=== PATIENT | female | born 1965 | race African-American/Black ===

== ENCOUNTER → 2018-03-24 07:02 | Outpatient (CLI) | payer MEDICARE, MEDICAID, SELFPAY ==
[2018-03-24 09:03] LABS: Alanine Aminotransferase 28 IU/L (9-52); Albumin 4.1 g/dL (3.5-5.0); Albumin Globulin Ratio 1.1 (1.0-2.8); Alkaline Phosphatase 100 U/L (38-126); Aspartate Aminotransferase 27 IU/L (14-36); BUN Creatinine Ratio 13.3 (6-22); Bilirubin Total 0.4 mg/dL (0.2-1.3); Calcium 9.6 mg/dL (8.4-10.2); Cholesterol 184 mg/dL (140-199); Estimated Glomerular Filt Rate > 60.0 mL/min (>60); Globulin 3.7 g/dL (1.7-4.1); Glucose 105 mg/dL (70-100); HDL Cholesterol 41 mg/dL (40-60); HEMOLYSIS < 15 (0-50); LDL Cholesterol Calculated 115 mg/dL (<100); Potassium 4.1 mmol/L (3.4-5.1); Sodium 141 mmol/L (137-145); Total Protein 7.8 g/dL (6.3-8.2); Triglycerides 139 mg/dL (35-150)
== END ==
PROVIDERS: PCP Family Medicine; Visit Provider Family Medicine
DX: E78.5 Hyperlipidemia, unspecified (principal)
CPT/HCPCS: 36415; 80053; 80061

== ENCOUNTER → 2018-11-09 07:01 | Outpatient (CLI) | payer MEDICARE, MEDICAID, SELFPAY ==
[2018-11-09 07:33] LABS: Appearance Urine UA CLEAR; Bilirubin Urine UA NEGATIVE (NEGATIVE); Color Urine UA YELLOW; Glucose Urine UA NEGATIVE (Negative); Ketones Urine UA NEGATIVE (NEGATIVE); Leukocyte Esterase Urine UA NEGATIVE (NEGATIVE); Nitrite Urine UA NEGATIVE (Negative); Occult Blood Urine UA NEGATIVE (Negative); Protein Urine UA NEGATIVE (Negative); Specific Gravity Urine UA 1.015 (1.000-1.035); Urobilinogen Urine UA 0.2 E.U./dL (0.2)
[2018-11-09 07:55] LABS: Alanine Aminotransferase 19 IU/L (9-52); Albumin 4.3 g/dL (3.5-5.0); Albumin Globulin Ratio 1.2 (1.0-2.8); Alkaline Phosphatase 121 U/L (38-126); Aspartate Aminotransferase 20 IU/L (14-36); Bilirubin Total 0.4 mg/dL (0.2-1.3); Blood Urea Nitrogen 13 mg/dL (7-17); Calcium 9.7 mg/dL (8.4-10.2); Carbon Dioxide 28 mmol/L (22-32); Chloride 105 mmol/L (98-107); Cholesterol 168 mg/dL (140-199); Estimated Glomerular Filt Rate 58.5 mL/min (>60); Globulin 3.6 g/dL (1.7-4.1); Glucose 103 mg/dL (70-100); HDL Cholesterol 38 mg/dL (40-60); HEMOLYSIS < 15 (0-50); LDL Cholesterol Calculated 108 mg/dL (<100); Potassium 4.3 mmol/L (3.4-5.1); Sodium 143 mmol/L (137-145); Total Protein 7.9 g/dL (6.3-8.2); Triglycerides 112 mg/dL (35-150)
[2018-11-09 08:46] LABS: Thyroid Stimulating Hormone 1.45 uIU/mL (0.47-4.68)
== END ==
PROVIDERS: PCP Family Medicine; Visit Provider Family Medicine
DX: E78.5 Hyperlipidemia, unspecified (principal); Z51.81 Encounter for therapeutic drug level monitoring; R76.8 Other specified abnormal immunological findings in serum
CPT/HCPCS: 36415; 80053; 80061; 81003; 84443; 86704

== ENCOUNTER 2019-02-22 08:29 | Day surgery (SDC) | payer MEDICARE, MEDICAID, SELFPAY ==
--- NOTE | 2019-02-22 | PATH_ITS ---
[facility] Accession Number: [id number] . 01 Material submitted: . colon - LEFT COLON POLYP . 02 Diagnosis: Left Colon, Polyp, Biopsy: Tubular adenoma. MRV/02/23/2019 . 02 Electronically signed: . Flor Stoner MD, Pathologist NPI- [id number] . 01 Gross description: . LEFT COLON POLYP: Received in formalin is 1 fragment(s) of franz, soft tissue measuring 0.3 x 0.2 x 0.2 cm which is entirely submitted and submitted entirely in 1 cassette(s) /DMC /DMC . 02 Pathologist provided ICD-10: D12.6 . 02 CPT . 027787 Performed at: 01 [facility] [address] [id number] MD All Rodarte MD Phone: [phone] Performed at: 02 [facility] [address] [place], [place] [id number] MD Flor Stoner MD Phone: [phone]
[2019-02-22 08:41] VITALS: BP 125/76; PULSE 73; RESP 15; TEMP 36; O2SAT 94; BMI 37.3
[2019-02-22] MEDS: SODIUM CHLORIDE 0.9% 1,000 ML 200 ML IV (09:17)
--- NOTE | 2019-02-22 09:22 | PM.HP.1 ---
History of Present Illness Date Patient Seen: 02/22/19 Time Patient Seen: 09:22 Chief complaint: [id number] Colonoscopy Narrative: 54yo F for low risk screening colonoscopy. Does have family history of CRC in a grandfather who was age 71 but no first degree relatives. No symptoms in patient. Patient History Family History Father Cancer Hypertension Grandfather Colon cancer Grandmother Heart disease High cholesterol Mother Age: 71 Mental health problem Social History household members: family Smoking Status: Former smoker Family & Social History Family History Father Cancer Hypertension Grandfather Colon cancer Grandmother Heart disease High cholesterol Mother Age: 71 Mental health problem Social History: household members family Tobacco & Substance use: Smoking Status Former smoker Meds Home Medications Medication Instructions Recorded Confirmed Type hydroquinone microspheres 1 kira TOPICAL QDAY #30 gm 06/11/16 02/22/19 Rx latanoprost 0.005 % eye drops 1 drp EYE-BOTH DAILY ml 03/20/18 02/22/19 History timolol 0.5 % eye drops 1 drp EYE-BOTH DAILY ml 03/20/18 02/22/19 History gabapentin 300 mg capsule 300 mg PO BEDTIME #90 cap 11/25/18 02/22/19 Rx spironolactone 50 mg tablet 50 mg PO BID 11/25/18 02/22/19 History risperidone 2 mg tablet 2 mg PO QDAY #90 tab 01/12/19 02/22/19 Rx clonidine HCl 0.1 mg tablet 0.1 mg PO BIDP PRN #180 tab 01/14/19 02/22/19 Rx pantoprazole 20 mg tablet,delayed 20 mg PO QDAY #90 tab 02/11/19 02/22/19 Rx release lithium carbonate 300 mg capsule 300 mg PO TID #90 cap 02/19/19 02/22/19 Rx atorvastatin [Lipitor] 20 mg PO HS 02/22/19 02/22/19 History gabapentin 100 mg PO BID 02/22/19 02/22/19 History hydroxyzine HCl 20 mg PO TIDP PRN 02/22/19 02/22/19 History lamotrigine [Lamictal] 100 mg PO QDAY 04/22/19 04/22/19 History Allergies Allergy/AdvReac Type Severity Reaction Status Date / Time No Known Drug Allergies Allergy Verified 02/22/19 09:00 Review of Systems Constitutional Constitutional: Reports as per HPI Exam Vital Signs (past 8 hours): - 02/22/19 08:41 Temperature 96.8 F L Pulse Rate 73 Respiratory Rate 15 Blood Pressure 125/76 Pulse Oximetry 94 Oxygen Delivery Method Room Air Narrative Exam Narrative: AAO, NAD, obese female EOMI, MMM, no scleral icterus unlabored RA soft, nt/nd MAEW visible skin dry and intact Assessment & Plan (1) Screening for colorectal cancer: Current visit: Yes Status: Acute Assessment & Plan narrative: - plan for screening colonoscopy --> all R/B/A discussed and pt wishes to proceed
[2019-02-22] MEDS: fentaNYL 250 MCG/5 ML INJ IV (09:58)
[2019-02-22] MEDS: MIDAZOLAM 5 MG/5 ML VIAL IV (09:58)
[2019-02-22 10:01] VITALS: BP 117/72; PULSE 80; RESP 16; TEMP 36.1; O2SAT 97
[2019-02-22 10:06] VITALS: BP 127/74; PULSE 85; RESP 17; O2SAT 99
[2019-02-22 10:11] VITALS: BP 136/73; PULSE 84; RESP 17; O2SAT 99
--- NOTE | 2019-02-22 10:14 | SUR.PHASEI ---
Tolerating Po well, denies nausea/discomfort, oriented
[2019-02-22 10:16] VITALS: BP 118/54; PULSE 84; RESP 18; TEMP 36.7; O2SAT 99
--- NOTE | 2019-02-22 10:30 | SUR.PHASEII ---
1028 Oriented, comfortable, no questions/concerns, stable on feet. Resp unlabored, states that she feels wide awake.
--- NOTE | 2019-02-22 11:33 | PM.OP.ENDO ---
Operative Date/Time/Diagnoses Date of procedure: 02/22/19 Time of procedure: 09:56 Pre-op diagnosis: need for low risk screening colonoscopy Post-op diagnosis: same Procedure & Clinicians Study performed: low risk screening colonoscopy Same procedure as scheduled: Yes Indications: 54yo F with need for screening colonoscopy. Surgeon: Latricia Zimmerman Procedure Notes SCOAP/Timeout: 927 Procedure in detail: After obtaining informed consent, the patient was brought to the GI suite and placed in the left lateral decubitus position on the examination table. After placement of appropriate monitors, the patient was given incremental doses of Versed and Fentanyl until an appropriate level of sedation was achieved. A time out was held per SCOAP protocol. A digital rectal examination was performed and did not reveal any masses or obstructing lesions. The colonoscope was gently passed into the patient's anus and the entire colon navigated to the level of the cecum with minimal difficulty. Prep was adequate. Once in the cecum, the scope was slowly withdrawn being sure to go before and beyond all mucosal folds and prominences as able to get a thorough examination. A tiny 1-2mm hyperplastic-appearing polyp was noted in the proximal left colon. Other findings include scattered diverticula. At the level of the rectal vault, the scope was retroflexed and the internal anal canal was examined. The scope was straightened and air aspirated from the colon. The instrument was removed from the patient's body and the procedure was concluded. The patient was allowed to awaken from sedation without difficulty and taken to the post-anesthesia care unit in good condition. Scope withdrawal time: 12 min Sedation minutes: 27 Findings: diverticulosis and polyp (1-2 mm, hyperplastic appearing, in proximal left colon ) Specimen(s): other (L colon polyp) Complications: none Impression: 1. scattered diverticulosis 2. tiny L colon polyp, appears hyperplastic Recommendations: Colonscopy in 10 years (pending path results) and High fiber diet Follow up: as needed Disposition: PACU
== END 2019-02-22 10:28 | disposition home or self-care (01) ==
PROVIDERS: PCP Family Medicine; Visit Provider Surgery
PROC: 0DJD8ZZ Inspection of Lower Intestinal Tract, Via Natural or Artificial Opening Endoscopic (ICD-10-PCS; CPT 45378; principal; 2019-02-22 09:45)
DX: Z12.11 Encounter for screening for malignant neoplasm of colon (principal); K57.30 Diverticulosis of large intestine without perforation or abscess without bleeding; Z87.891 Personal history of nicotine dependence; D12.6 Benign neoplasm of colon, unspecified
CPT/HCPCS: 45380; 88305; 99152; 99153; J2250; J3010

== ENCOUNTER → 2019-02-25 10:16 | Outpatient (CLI) | payer MEDICARE, MEDICAID, SELFPAY ==
[2019-02-25 12:09] LABS: Alanine Aminotransferase 15 IU/L (9-52); Albumin 4.5 g/dL (3.5-5.0); Albumin Globulin Ratio 1.3 (1.0-2.8); Alkaline Phosphatase 132 U/L (38-126); Aspartate Aminotransferase 19 IU/L (14-36); Bilirubin Total 0.3 mg/dL (0.2-1.3); Blood Urea Nitrogen 12 mg/dL (7-17); Calcium 9.6 mg/dL (8.4-10.2); Carbon Dioxide 24 mmol/L (22-32); Chloride 103 mmol/L (98-107); Estimated Glomerular Filt Rate > 60.0 mL/min (>60); Globulin 3.6 g/dL (1.7-4.1); Glucose 85 mg/dL (70-100); HEMOLYSIS < 15 (0-50); Potassium 4.3 mmol/L (3.4-5.1); Sodium 139 mmol/L (137-145); Total Protein 8.1 g/dL (6.3-8.2)
== END ==
PROVIDERS: PCP Family Medicine; Visit Provider Physician Assistant
DX: L70.8 Other acne (principal)
CPT/HCPCS: 36415; 80053

== ENCOUNTER → 2019-03-09 09:06 | Outpatient (CLI) | payer MEDICARE, MEDICAID, SELFPAY ==
--- NOTE | 2019-03-09 09:08 | DI.MG.S_ITS ---
BILATERAL DIGITAL SCREENING MAMMOGRAM 3D/2D WITH CAD: 03/09/2019 CLINICAL: Baseline exam. Routine screening. Family history of breast cancer. No prior exams were available for comparison. There are scattered fibroglandular elements in both breasts. Current study was also evaluated with a Computer Aided Detection (CAD) system. No significant masses, calcifications, or other findings are seen in either breast. IMPRESSION: NEGATIVE There is no mammographic evidence of malignancy. A 1 year screening mammogram is recommended. This exam was interpreted at Station ID: [id number]. NOTE: For mammograms, a report in lay terms will be sent to the patient. Approximately 15% of breast malignancies will not be visualized mammographically. In the management of a palpable breast mass, a negative mammogram must not discourage biopsy of a clinically suspicious lesion. Electronically Signed By: Chris guzman/gabby:03/09/2019 12:50:33 letter sent: Normal Exam ACR BI-RADS Category 1: Negative [id number]
== END ==
PROVIDERS: PCP Family Medicine; Visit Provider Family Medicine
DX: Z12.31 Encounter for screening mammogram for malignant neoplasm of breast (principal); Z80.3 Family history of malignant neoplasm of breast
CPT/HCPCS: 77063; 77067

== ENCOUNTER → 2019-04-21 09:13 | Outpatient (CLI) | payer MEDICARE, MEDICAID, SELFPAY | PROVIDERS: PCP Family Medicine; Visit Provider Family Medicine | DX: M54.5 Low back pain (principal); R32 Unspecified urinary incontinence | CPT/HCPCS: 87086 ==

== ENCOUNTER → 2019-05-12 07:02 | Outpatient (CLI) | payer MEDICARE, MEDICAID, SELFPAY ==
[2019-05-12 07:55] LABS: Add Manual Diff / Slide Review NO; Basophils Absolute Auto 100 /uL (0-100); Basophils Percent Auto 0.9 % (0-2); Eosinophils Absolute Auto 200 /uL (0-450); Eosinophils Percent Auto 2.3 % (2-4); Hematocrit 42.6 % (36-46); Hemoglobin 14.4 g/dL (12.0-16.0); Lymphocytes Absolute Auto 1800 /uL (1100-4500); Lymphocytes Percent Auto 26.8 % (25-40); Mean Corpuscular HGB Conc 33.9 % (30-36); Mean Corpuscular Hemoglobin 31.6 PG (26-34); Mean Corpuscular Volume 93.3 fL (80-100); Monocytes Absolute Auto 300 /uL (0-900); Monocytes Percent Auto 5.1 % (3-14); Neutrophils Absolute Auto 4400 /uL (1500-7000); Neutrophils Percent Auto 64.9 % (50-75); Platelet Count 266 X10^3/uL (150-400); Red Blood Cell Count 4.56 X10^6/uL (4.0-5.2); Red Cell Distribution Width 13.4 % (11.6-14.8); White Blood Cell Count 6.8 X10^3/uL (4.5-11.0)
[2019-05-12 08:03] LABS: Alanine Aminotransferase 15 IU/L (9-52); Albumin 4.6 g/dL (3.5-5.0); Albumin Globulin Ratio 1.2 (1.0-2.8); Alkaline Phosphatase 153 U/L (38-126); Aspartate Aminotransferase 20 IU/L (14-36); Bilirubin Total 0.5 mg/dL (0.2-1.3); Blood Urea Nitrogen 13 mg/dL (7-17); Carbon Dioxide 26 mmol/L (22-32); Chloride 101 mmol/L (98-107); Cholesterol 186 mg/dL (140-199); Estimated Glomerular Filt Rate 58.2 mL/min (>60); Globulin 3.9 g/dL (1.7-4.1); Glucose 100 mg/dL (70-100); HDL Cholesterol 44 mg/dL (40-60); HEMOLYSIS < 15 (0-50); LDL Cholesterol Calculated 115 mg/dL (<100); Potassium 4.2 mmol/L (3.4-5.1); Sodium 139 mmol/L (137-145); Total Protein 8.5 g/dL (6.3-8.2); Triglycerides 136 mg/dL (35-150)
[2019-05-12 08:10] LABS: Lithium 0.4 mmol/L (0.6-1.2)
[2019-05-12 08:46] LABS: Thyroid Stimulating Hormone 2.47 uIU/mL (0.47-4.68)
== END ==
PROVIDERS: Family Provider Nurse Practitioner Psychiatric/Mental Health; PCP Family Medicine; Visit Provider Family Medicine
DX: Z13.220 Encounter for screening for lipoid disorders (principal); Z13.29 Encounter for screening for other suspected endocrine disorder; Z51.81 Encounter for therapeutic drug level monitoring; Z79.899 Other long term (current) drug therapy
CPT/HCPCS: 36415; 80053; 80061; 80178; 84443; 85025

== ENCOUNTER → 2019-07-26 06:59 | Outpatient (CLI) | payer MEDICARE, MEDICAID, SELFPAY ==
[2019-07-26 08:34] LABS: Add Manual Diff / Slide Review NO; Basophils Absolute Auto 100 /uL (0-100); Eosinophils Absolute Auto 500 /uL (0-450); Eosinophils Percent Auto 7.9 % (2-4); Hematocrit 40.1 % (36-46); Hemoglobin 13.6 g/dL (12.0-16.0); Lymphocytes Absolute Auto 1500 /uL (1100-4500); Lymphocytes Percent Auto 21.6 % (25-40); Mean Corpuscular Hemoglobin 31.5 PG (26-34); Mean Corpuscular Volume 92.6 fL (80-100); Monocytes Absolute Auto 300 /uL (0-900); Monocytes Percent Auto 4.8 % (3-14); Neutrophils Absolute Auto 4400 /uL (1500-7000); Neutrophils Percent Auto 64.7 % (50-75); Platelet Count 273 X10^3/uL (150-400); Red Blood Cell Count 4.33 X10^6/uL (4.0-5.2); Red Cell Distribution Width 12.8 % (11.6-14.8); White Blood Cell Count 6.8 X10^3/uL (4.5-11.0)
[2019-07-26 09:05] LABS: Alanine Aminotransferase 13 IU/L (9-52); Albumin 4.4 g/dL (3.5-5.0); Albumin Globulin Ratio 1.1 (1.0-2.8); Alkaline Phosphatase 136 U/L (38-126); Aspartate Aminotransferase 19 IU/L (14-36); Bilirubin Total 0.5 mg/dL (0.2-1.3); Blood Urea Nitrogen 11 mg/dL (7-17); Calcium 9.9 mg/dL (8.4-10.2); Carbon Dioxide 25 mmol/L (22-32); Chloride 102 mmol/L (98-107); Cholesterol 156 mg/dL (140-199); Estimated Glomerular Filt Rate 52.2 mL/min (>60); Globulin 3.9 g/dL (1.7-4.1); Glucose 112 mg/dL (70-100); HDL Cholesterol 38 mg/dL (40-60); HEMOLYSIS < 15 (0-50); LDL Cholesterol Calculated 90 mg/dL (<100); Potassium 4.2 mmol/L (3.4-5.1); Sodium 140 mmol/L (137-145); Total Protein 8.3 g/dL (6.3-8.2); Triglycerides 138 mg/dL (35-150)
== END ==
PROVIDERS: PCP Family Medicine; Visit Provider Family Medicine
DX: E78.5 Hyperlipidemia, unspecified (principal); Z51.81 Encounter for therapeutic drug level monitoring; Z86.19 Personal history of other infectious and parasitic diseases
CPT/HCPCS: 36415; 80053; 80061; 85025

== ENCOUNTER → 2020-01-05 06:58 | Outpatient (CLI) | payer MEDICARE, MEDICAID, SELFPAY ==
--- NOTE | 2020-01-05 07:05 | DI.RAD.S_ITS ---
PROCEDURE: XR LUMBAR SPINE 2-3V INDICATIONS: low back pain with burning right thigh TECHNIQUE: 3 views of the lumbar spine were acquired. COMPARISON: None. FINDINGS: Bones: 5 [id number] vertebrae are present. There is normal bony alignment. No vertebral body compression fractures. No suspicious bony lesions. There is minimal degenerative disc disease along the lumbosacral spine and also only a mild degree of facet degeneration is seen at L4-5 and L5-S1. Soft tissues: Overlying bowel gas pattern is normal. No suspicious soft tissue calcifications. IMPRESSION: The degenerative changes along the LS-spine are quite mild, but if nerve root impingement/disc herniation is clinically suspected MR scanning would provide significantly more accurate visualization of those structures. Dictated by: Dwight Dial M.D. on 01/05/2020 at 9:34 Approved by: Dwight Dial M.D. on 01/05/2020 at 9:35
== END ==
PROVIDERS: PCP Nurse Practitioner Family; Referring Provider Nurse Practitioner Family; Visit Provider Nurse Practitioner Family
DX: M54.5 Low back pain (principal); M47.816 Spondylosis without myelopathy or radiculopathy, lumbar region; M47.817 Spondylosis without myelopathy or radiculopathy, lumbosacral region; R20.8 Other disturbances of skin sensation
CPT/HCPCS: 72100